=== PATIENT | female | born 1965 | race Caucasian/White ===

== ENCOUNTER 2020-10-01 14:49 | Emergency (ER) | payer OTHER ==
[~2020-10-01] VITALS: Ht 170.2 cm; Wt 88.5 kg
[2020-10-01] MEDS ORDERED: VENTOLIN HFA 1818 GM INH (16:46)
[2020-10-01] MEDS ORDERED: ZPAK PO (16:46)
[2020-10-01] MEDS ORDERED: PROMETH-CODEIN 65 ML PO (16:46)
[2020-10-01] MEDS ORDERED: ZOFRAN ODT4 MG DISSOLVE (16:46)
[2020-10-01] MEDS ORDERED: DEXAMETHASONE 44 M1 PO (16:46)
[2020-10-01 16:53] VITALS: BP 124/72
[2020-10-01 17:04] LABS: URINE BLOOD TRACE (Negative); URINE CLARITY CLEAR; URINE COLOR YELLOW; URINE GLUCOSE-RANDOM NEGATIVE (Negative); URINE KETONES 1+ (Negative); URINE LEUKOCYTES-REFLEX TRACE (Negative); URINE NITRITE-REFLEX NEGATIVE (Negative); URINE PROTEIN 2+ (Negative); URINE SPECIFIC GRAVITY 1.025 (1.005-1.030)
[2020-10-01 17:07] LABS: URINE BILIRUBIN 1+ (Negative)
[2020-10-01 17:08] LABS: ICTOTEST (BILI CONFIRMATORY) Negative (Negative)
[2020-10-01 17:41] LABS: MUCUS 4-6 Moderate strn/LPF (None Seen); SQUAMOUS >10 Many /LPF (0-3)
[2020-10-01 17:42] LABS: CRYSTALS None Seen /LPF (None Seen); URINE WBC-REFLEX 6-15 Few /HPF (0-5)
[2020-10-01 17:43] LABS: CASTS None Seen /LPF (None Seen); URINE RBC 0-2 Rare /HPF (0-2)
== END 2020-10-01 16:54 | disposition home or self-care (01) ==
LOC: M.ERS 14:49
PROVIDERS: Family Medicine
DX: U07.1 COVID-19 (principal)